=== PATIENT | female | born 1980 | race Caucasian/White ===

== ENCOUNTER 2022-01-28 11:12 | Outpatient (CLI) | payer MEDICAID, SELFPAY ==
[2022-01-28 11:48] LABS: Basophils Percent Auto 1.1 % (0.0-1.0); Eosinophils Absolute Auto 0.43 K/mm3 (0.02-0.50); Eosinophils Percent Auto 4.7 % (1.0-6.0); Hematocrit 38.1 % (35.0-49.0); Hemoglobin 12.5 g/dL (12.0-15.0); Immature Granulocyte Absolute 0.03 K/mm3 (0.00-0.00); Immature Granulocyte Percent A 0.3 % (0.0-0.0); Lymphocytes Absolute Auto 3.31 K/mm3 (1.10-4.50); Lymphocytes Percent Auto 35.8 % (18.0-42.0); Mean Corpuscular HGB Conc 32.8 g/dL (32.0-36.0); Mean Corpuscular Volume 91.6 fL (78.0-102.0); Monocytes Absolute Auto 0.54 K/mm3 (0.10-0.90); Monocytes Percent Auto 5.8 % (2.0-11.0); Neutrophils Absolute Auto 4.8 K/mm3 (1.7-7.2); Neutrophils Percent Auto 52.3 % (50.0-70.0); Platelet Count Result 329 K/mm3 (150-420); Red Blood Count 4.16 M/mm3 (4.20-5.40); Red Cell Distribution Width 12.9 % (11.6-14.4); White Blood Count 9.2 K/mm3 (4.8-10.8)
[2022-01-28 12:12] LABS: Alanine Aminotransferase 22 U/L (14-59); Albumin Level 3.9 g/dL (3.4-5.0); Alkaline Phosphatase 67 U/L (46-116); Anion Gap 7 mmol/L (8-16); Aspartate Amino Transferase 11 U/L (15-37); Bilirubin,Total 0.3 mg/dL (0.00-1.00); Blood Urea Nitrogen 5 mg/dL (7-18); Calcium 9.2 mg/dL (8.5-10.1); Carbon Dioxide 29 mmol/L (21-32); Chloride 105 mmol/L (98-108); Estimated Glomerular Filt Rate > 60; Glucose 93 mg/dL (70-99); Magnesium 2.2 mg/dL (1.8-2.4); Osmolality Calculated 289 mOsm/kg (285-295); Potassium 4.2 mmol/L (3.5-5.1); Sodium 141 mmol/L (136-145); Thyroid Stimulating Hormone 3.16 uIU/mL (0.36-3.74)
== END 2022-01-28 11:13 | disposition home or self-care (01) ==
LOC: CHSLAB 11:17
PROVIDERS: PCP Nurse Practitioner Family; Visit Provider Nurse Practitioner Family
DX: F25.9 Schizoaffective disorder, unspecified (principal); E83.42 Hypomagnesemia; E03.9 Hypothyroidism, unspecified
CPT/HCPCS: 36415; 80053; 83735; 84443; 85025